=== PATIENT | male | born 1980 | race Caucasian/White ===

== ENCOUNTER 2018-04-11 01:11 | Emergency (ER) | payer MEDICAID ==
[2018-04-11 01:17] VITALS: BP 140/88
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
== END 2018-04-11 02:37 | disposition home or self-care (01) ==
DX: S62.522A Displaced fracture of distal phalanx of left thumb, initial encounter for closed fracture (principal); V19.9XXA Pedal cyclist (driver) (passenger) injured in unspecified traffic accident, initial encounter; Y92.9 Unspecified place or not applicable; Y99.9 Unspecified external cause status; Y93.9 Activity, unspecified; Z59.0 Homelessness
CPT/HCPCS: L3807

== ENCOUNTER 2018-04-18 10:40 | Emergency (ER) | payer MEDICAID ==
--- NOTE | 2018-04-18 10:48 | EDPHY ---
H & P Stated Complaint: Frostbite Time Seen by Provider: 04/18/18 10:42 HPI/ROS: CHIEF COMPLAINT: Frostbite HISTORY OF PRESENT ILLNESS: Patient is a 38-year-old man who is been dealing with frostbite on both toes for the last several weeks. He states that he stayed out side last night and thinks that he exacerbated his symptoms. He denies other injuries or complaints. No fevers. Severity: Moderate Modifying factors: Worsened by cold REVIEW OF SYSTEMS: Constitutional: denies: chills, fever, recent illness, recent injury EENTM: denies: blurred vision, double vision, nose congestion Respiratory: denies: cough, shortness of breath Cardiac: denies: chest pain, irregular heart rate, lightheadedness, palpitations Gastrointestinal/Abdominal: denies: abdominal pain, diarrhea, nausea, vomiting, blood streaked stools Genitourinary: denies: dysuria, frequency, hematuria, pain Musculoskeletal: denies: joint pain, muscle pain Skin: See HPI Neurological: denies: headache, numbness, paresthesia, tingling, dizziness, weakness Hematologic/Lymphatic: denies: blood clots, easy bleeding, easy bruising Immunologic/allergic: denies: HIV/AIDS, transplant 10 systems reviewed and negative except as noted EXAM: GENERAL: Well-appearing, well-nourished and in no acute distress. HEAD: Atraumatic, normocephalic. EYES: Pupils equal round and reactive to light, extraocular movements intact, sclera anicteric, conjunctiva are normal. ENT: TMs normal, nares patent, oropharynx clear without exudates. Moist mucous membranes. NECK: Normal range of motion, supple without lymphadenopathy or JVD. LUNGS: Breath sounds clear to auscultation bilaterally and equal. No wheezes rales or rhonchi. HEART: Regular rate and rhythm without murmurs, rubs or gallops. ABDOMEN: Soft, nontender, normoactive bowel sounds. No guarding, no rebound. No masses appreciated. BACK: No CVA tenderness, no spinal tenderness, step-offs or deformities EXTREMITIES: The patient has frostbite injuries to tips of all toes. Most prominent to the lateral aspect of his right foot. White discoloration at the tips with some purplish discoloration surrounding. No open lesions. No obvious infection. Normal movement. no pitting or edema. No clubbing NEUROLOGICAL: Cranial nerves II through XII grossly intact. Normal speech, normal gait. 5/5 strength, normal movement in all extremities, normal sensation , normal reflexes PSYCH: Normal mood, normal affect. SKIN: See above, dry, Source: Patient, EMS Exam Limitations: No limitations - Medical/Surgical History Hx Asthma: No Hx Chronic Respiratory Disease: No Hx Diabetes: No Hx Cardiac Disease: No Hx Renal Disease: No Hx Cirrhosis: Yes Hx Alcoholism: Yes Other PMH: paranoid schizophrenic - Social History Smoking Status: Current every day smoker Constitutional: Initial Vital Signs Temperature (C) 36.8 C 04/18/18 10:40 Heart Rate 95 04/18/18 10:40 Respiratory Rate 16 04/18/18 10:40 Blood Pressure 132/91 H 04/18/18 10:40 O2 Sat (%) 97 04/18/18 10:40 O2 Delivery Mode Room Air Allergies/Adverse Reactions: No Allergies [NKDA] Allergy (Verified 04/15/18 00:40) Home Medications: Medication Instructions Recorded Acetaminophen [Tylenol 325mg (*)] 650 mg PO Q6 PRN 04/15/18 Acetaminophen [Tylenol 325mg (*)] 325 - 650 mg PO Q4HRS PRN tab 04/17/18 Aspirin [Aspirin 325 mg (*)] 325 mg PO DAILY tab 04/17/18 Gabapentin [Neurontin 300 MG (*)] 900 mg PO TID #90 cap 04/17/18 buPROPion XL [Wellbutrin 150mg XL] 150 mg PO DAILY #30 tab 04/17/18 Medical Decision Making ED Course/Re-evaluation: The patient has old-appearing frostbite injuries to both feet. He states that they are more painful after sleeping outside last night. There dry. No open wounds or sign of infections currently. Will give extra pair of socks and referral to nursing home. Will also refer to surgery. Discussed the treatment for these which is essentially observation and auto amputation. I do feel that the majority of his toes will survive. Differential Diagnosis: Partial list of the Differential diagnosis considered include but were not limited to; frostbite, wound infection, burn and although unlikely based on the history and physical exam, I also considered cellulitis, ischemia, fracture , crush injury. Departure - Departure Disposition: Home, Routine, Self-Care Clinical Impression: Frostbite of both feet Condition: Fair Instructions: Frostbite (ED) Additional Instructions: Reminder: you have an appt at the [facility], [address] [place] [address], on 04/25/18 @ 0800. Please follow up with coordinated entry and continue utilizing the warming shelters. Referrals: Patient,NotPresent [Unknown] - As per Instructions Myles Mann MD [Medical Doctor] - 5-7 days, call for appt.
[2018-04-18 10:49] VITALS: BP 146/96
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
== END 2018-04-18 11:21 | disposition home or self-care (01) ==
LOC: EDUNIT# → MERGE 10:40
DX: T33.832A Superficial frostbite of left toe(s), initial encounter (principal); T33.831A Superficial frostbite of right toe(s), initial encounter; X31.XXXA Exposure to excessive natural cold, initial encounter; Y92.9 Unspecified place or not applicable; Y99.9 Unspecified external cause status; Y93.9 Activity, unspecified

== ENCOUNTER 2018-04-25 01:55 | Emergency (ER) | payer MEDICAID ==
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
[2018-04-25 02:49] VITALS: BP 142/87
== END 2018-04-25 03:02 | disposition home or self-care (01) ==
DX: R23.4 Changes in skin texture (principal); F20.9 Schizophrenia, unspecified; Z59.0 Homelessness

== ENCOUNTER 2018-05-03 01:59 | Emergency (ER) | payer MEDICAID ==
[2018-05-03 02:01] VITALS: BP 134/80
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
== END 2018-05-03 02:22 | disposition home or self-care (01) ==
DX: T33.831D Superficial frostbite of right toe(s), subsequent encounter (principal); T33.8 Superficial frostbite of ankle, foot, and toe(s); F20.0 Paranoid schizophrenia

== ENCOUNTER 2018-05-04 02:11 | Emergency (ER) | payer MEDICAID ==
--- NOTE | 2018-05-04 02:13 | EDPHY ---
H & P Time Seen by Provider: 05/04/18 02:13 HPI/ROS: HPI CHIEF COMPLAINT: "I think I have an infection underneath my wagner" HISTORY OF PRESENT ILLNESS: 38-year-old male, history of schizophrenia, homelessness, presents emergency room stating that he thinks he has an infection underneath his wagner. He complains some mild redness, itchiness, is concerned about infection. He has been picking at his wagner and skin underneath , it is noted he has dirty hands. On exam I am unable to visualize any significant cellulitis there is some mild redness and skin irritation. I do not appreciate any mites. Otherwise denies any significant complaints. Past Medical History: Medical history for schizophrenia, homelessness, history of frostbite. Past Surgical History: Recent surgery Social History: Denies daily use of drugs alcohol tobacco. Homeless. Family History: Noncontributory ROS REVIEW OF SYSTEMS: 10 Systems were reviewed and negative with the exception of the elements mentioned in the history of present illness. Exam Constitutional triage nursing summary reviewed, vital signs reviewed, awake/ alert. Eyes normal conjunctivae and sclera, EOMI, PERRLA. HENT normal inspection, atraumatic, moist mucus membranes, no epistaxis, neck supple/ no meningismus, no raccoon eyes. Respiratory clear to auscultation bilaterally, normal breath sounds, no respiratory distress, no wheezing. Cardiovascular rate normal, regular rhythm, no murmur, no edema, distal pulses normal. Gastrointestinal soft, non-tender, no rebound, no guarding, normal bowel sounds, no distension, no pulsatile mass. Genitourinary no CVA tenderness. Musculoskeletal no midline vertebral tenderness, full range of motion, no calf swelling, no tenderness of extremities, no meningismus, good pulses, neurovascularly intact. Skin mild redness underneath his wagner on his chin. Some skin picking. No abscess. No significant cellulitis. No mites. Neurologic awake, alert and oriented x 3, AAOx3, moves all 4 extremities equally, motor intact, sensory intact, CN II-XII intact, normal cerebellar, normal vision, normal speech. Psychiatric normal mood/affect. Heme/Lymph/Immune no lymphadenopathy. Differential Diagnosis: Includes but is not limited to in a particular order: Cellulitis, folliculitis, dry skin, skin picking Medical Decision Making: Plan for this patient will start on Keflex. 1st dose given emergency room, take-home bottle, I recommended he highly refrain from speaking his wagner and skin underneath. He is homeless and has dirty hands and nails there is noted Dilaudid dirt under his nail beds. I do recommend he stops picking his skin. Additionally return precautions discussed. Understands this and is comfortable this plan. Source: Patient - Personal History Tetanus Vaccine Date: 2015 - Medical/Surgical History Hx Asthma: No Hx Chronic Respiratory Disease: No Hx Diabetes: No Hx Cardiac Disease: No Hx Renal Disease: No Hx Cirrhosis: Yes Hx Alcoholism: Yes Hx HIV/AIDS: No Hx Splenectomy or Spleen Trauma: No Other PMH: paranoid schizophrenic, drug abuse - Social History Smoking Status: Current every day smoker Constitutional: Initial Vital Signs Temperature (C) 36.6 C 05/04/18 02:15 Heart Rate 104 H 05/04/18 02:15 Respiratory Rate 18 05/04/18 02:15 Blood Pressure 130/78 H 05/04/18 02:15 O2 Sat (%) 96 05/04/18 02:15 O2 Delivery Mode Room Air Allergies/Adverse Reactions: No Allergies [NKDA] Allergy (Verified 05/04/18 02:15) Home Medications: Medication Instructions Recorded Acetaminophen [Tylenol 325mg (*)] 650 mg PO Q6 PRN 04/15/18 Acetaminophen [Tylenol 325mg (*)] 325 - 650 mg PO Q4HRS PRN tab 04/17/18 Aspirin [Aspirin 325 mg (*)] 325 mg PO DAILY tab 04/17/18 Gabapentin [Neurontin 300 MG (*)] 900 mg PO TID #90 cap 04/17/18 buPROPion XL [Wellbutrin 150mg XL] 150 mg PO DAILY #30 tab 04/17/18 Cephalexin [Keflex] 500 mg PO Q6H #28 cap 05/04/18 Departure - Departure Disposition: Home, Routine, Self-Care Clinical Impression: Cellulitis Condition: Good Instructions: Cellulitis (ED) Additional Instructions: 1. Do not pick your skin, do not pick your wagner. 2. Antibiotics as prescribed. 3. Return to the emergency room if worsening symptoms Prescriptions: Cephalexin [Keflex] 500 mg PO Q6H #28 cap
[2018-05-04] MEDS ORDERED: CEPHALEXIN 500MG PREPACK#4 BTL TAKEHOME ONE (02:26)
[2018-05-04] MEDS ORDERED: CEPHALEXIN 500 MG CAP PO ONE (02:26)
[2018-05-04 04:11] VITALS: BP 126/76
== END 2018-05-04 04:11 | disposition home or self-care (01) ==
DX: L03.211 Cellulitis of face (principal); F20.0 Paranoid schizophrenia; F17.200 Nicotine dependence, unspecified, uncomplicated; Z59.0 Homelessness

== ENCOUNTER → 2018-05-16 | Emergency (ER) | payer MEDICAID ==
[2018-05-16 14:03] VITALS: BP 130/82
== END ==
DX: Z53.21 Procedure and treatment not carried out due to patient leaving prior to being seen by health care provider (principal)

== ENCOUNTER 2018-05-31 01:01 | Emergency (ER) | payer MEDICAID ==
--- NOTE | 2018-05-31 01:13 | EDPHY ---
H & P Stated Complaint: SOB X 4 months Time Seen by Provider: 05/31/18 01:13 HPI/ROS: HPI CHIEF COMPLAINT: Cough x4 month HISTORY OF PRESENT ILLNESS: Patient is a 38-year-old male, well known to myself , has a history of schizophrenia and homelessness, he has been doing methamphetamine, he presents emergency room with cough x4 months. He denies fever. Denies productive cough, denies chest pain or shortness of breath. He is concerned about his cough tonight. He has also been smoking methamphetamine. He denies SI or HI. Past Medical History: Denies significant medical history except for schizophrenia. Does not take any daily medication Past Surgical History: No recent surgical history Social History: homeless, methamphetamine abuse Family History: Noncontributory. ROS REVIEW OF SYSTEMS: 10 Systems were reviewed and negative with the exception of the elements mentioned in the history of present illness. Exam Constitutional triage nursing summary reviewed, vital signs reviewed, awake/ alert. Vital signs stable. No acute distress. Eyes normal conjunctivae and sclera, EOMI, PERRLA. HENT normal inspection, atraumatic, moist mucus membranes, no epistaxis, neck supple/ no meningismus, no raccoon eyes. Respiratory clear to auscultation bilaterally, normal breath sounds, no respiratory distress, no wheezing. Cardiovascular rate normal, regular rhythm, no murmur, no edema, distal pulses normal. Gastrointestinal soft, non-tender, no rebound, no guarding, normal bowel sounds, no distension, no pulsatile mass. Genitourinary no CVA tenderness. Musculoskeletal no midline vertebral tenderness, full range of motion, no calf swelling, no tenderness of extremities, no meningismus, good pulses, neurovascularly intact. Skin pink, warm, & dry, no rash, skin atraumatic. Neurologic awake, alert and oriented x 3, AAOx3, moves all 4 extremities equally, motor intact, sensory intact, CN II-XII intact, normal cerebellar, normal vision, normal speech. Psychiatric normal mood/affect. Heme/Lymph/Immune no lymphadenopathy. Differential Diagnosis: Includes but is not limited to in a particular order viral syndrome, URI, bronchitis, pneumonia, methamphetamine abuse Medical Decision Making: Plan for this patient chest x-ray two view, and re- evaluation. Re-evaluation: Chest x-ray two view negative for acute cardiopulmonary disease. Image interpreted by myself Updated patient 2:30 a.m. Resting comfortably no acute distress. Patient is not hypoxic here, he is afebrile, his chest x-ray shows no pneumonia. Will prescribe an albuterol inhaler highly recommend refrain from smoking cigarettes and methamphetamine. He understands methamphetamine is very dangerous. We discussed return precautions. Patient was to be observed further, however patient left AMA. Source: Patient - Personal History Current Tetanus/Diphtheria Vaccine: Yes Current Tetanus Diphtheria and Acellular Pertussis (TDAP): Yes Tetanus Vaccine Date: 2015 - Medical/Surgical History Hx Asthma: No Hx Chronic Respiratory Disease: No Hx Diabetes: No Hx Cardiac Disease: No Hx Renal Disease: No Hx Cirrhosis: Yes Hx Alcoholism: Yes Hx HIV/AIDS: No Hx Splenectomy or Spleen Trauma: No Other PMH: paranoid schizophrenic, drug abuse - Social History Smoking Status: Current every day smoker Constitutional: Initial Vital Signs Temperature (C) 37.0 C 05/31/18 01:03 Heart Rate 113 H 05/31/18 01:03 Respiratory Rate 18 05/31/18 01:03 Blood Pressure 138/83 H 05/31/18 01:03 O2 Sat (%) 96 05/31/18 01:03 O2 Delivery Mode Room Air Allergies/Adverse Reactions: No Allergies [NKDA] Allergy (Verified 05/31/18 01:03) Home Medications: Medication Instructions Recorded NK [No Known Home Meds] 05/16/18 Medical Decision Making - Data Points Medications Given: Discontinued Medications Albuterol Sulfate (Proventil Inh Prepack) 1 mdi CHARIS PETE ONE Stop: 05/31/18 04:39 Last Admin: 05/31/18 04:44 Dose: 1 mdi Departure - Departure Disposition: Against Medical Advice Clinical Impression: Cough Condition: Good Instructions: Albuterol (By breathing), Against Medical Advice (ED), Acute Cough (ED) Additional Instructions: 1. Stay well-hydrated and rest. 2. Albuterol inhaler as needed. 3. Return to the emergency room if worsening symptoms 4. Do not smoke or do methamphetamine. Referrals: NONE *PRIMARY CARE P,. [Primary Care Provider] - As per Instructions [facility],. [Clinic] - As per Instructions
[2018-05-31 04:32] VITALS: BP 112/66
[2018-05-31] MEDS ORDERED: ALBUTEROL INH PREPACK MDI TAKEHOME ONE (04:38)
== END 2018-05-31 04:50 | disposition left against medical advice (07) ==
LOC: EEVIPCON 01:01
DX: R05 Cough (principal); F17.200 Nicotine dependence, unspecified, uncomplicated; Z59.0 Homelessness

== ENCOUNTER 2018-06-09 05:50 | Emergency (ER) | payer MEDICAID ==
[2018-06-09 05:56] VITALS: BP 114/78
--- NOTE | 2018-06-09 06:13 | EDPHY ---
H & P Stated Complaint: R FOOT PAIN DENIES TRAUMA. HX OF FROSTBITE Time Seen by Provider: 06/09/18 06:03 HPI/ROS: Chief Complaint: Foot pain HPI: 38-year-old homeless male well known to myself in this emergency department. He has a history of schizophrenia chronic methamphetamine abuse. Patient also has history of frostbite several months ago. Patient is coming in complaining of worsening pain in his mid right foot for the last few days. Denies any injuries. He is complaining of swelling in his mid foot. No fevers or chills. Last methamphetamine was 2-3 days ago. ROS: 10 systems were reviewed and were negative except those elements noted in the HPI. PMH: Schizophrenia, chronic methamphetamine abuse, frostbite Social History: No smoking, no alcohol, no recreational drug use Family History: non-contributory Physical Exam: Gen: Awake, Alert, No Distress HEENT: Nose: no rhinorrhea Eyes: PERRLA, EOMI Mouth: Moist mucosa Neck: Supple, no JVD Chest: nontender, lungs clear to auscultation Heart: S1, S2 normal, no murmur Abd: Soft, non-tender, no guarding Back: no CVA tenderness, no midline tenderness Ext: no edema, mild hyperemic digits which are his baseline. He is only in the distal tips of his toes. He has normal perfusion. He has mild tenderness in his right mid foot. There is no deformity. There is no swelling. There is no discoloration. Is not warm to touch. Has normal deltoid solids pedis pulses. Skin: no rash Neuro: CN II-XII intact, Sensation grossly intact, Strength 5/5 in bilateral upper and lower extremities - Personal History Current Tetanus/Diphtheria Vaccine: Yes Current Tetanus Diphtheria and Acellular Pertussis (TDAP): Yes Tetanus Vaccine Date: 2015 - Medical/Surgical History Hx Asthma: No Hx Chronic Respiratory Disease: No Hx Diabetes: No Hx Cardiac Disease: No Hx Renal Disease: No Hx Cirrhosis: Yes Hx Alcoholism: Yes Hx HIV/AIDS: No Hx Splenectomy or Spleen Trauma: No Other PMH: paranoid schizophrenic, drug abuse - Social History Smoking Status: Current every day smoker Constitutional: Initial Vital Signs Temperature (C) 37.2 C 06/09/18 05:50 Heart Rate 138 H 06/09/18 05:50 Respiratory Rate 18 06/09/18 05:50 Blood Pressure 114/78 06/09/18 05:50 O2 Sat (%) 95 06/09/18 05:50 O2 Delivery Mode Room Air Allergies/Adverse Reactions: No Allergies [NKDA] Allergy (Verified 06/09/18 05:55) Home Medications: Medication Instructions Recorded NK [No Known Home Meds] 05/16/18 Medical Decision Making ED Course/Re-evaluation: 30-year-old male presenting with right foot pain. I suspect this is secondary to his chronic nerve damage secondary to his frostbite. There are no signs of bony deformity. No signs of infection at this time. He is otherwise at his baseline and well. I will discharge with referral to [facility], return for any concerns. When I informed the patient I do not see any evidence of acute infection of the process he demanded blood work. A total and at think there is any indication for that at this time. He is also insistent that there swelling in his dorsal right foot which I do not appreciate. He became very angry and belligerent. Patient threatened me. He stated he wanted to be evaluated another hospital acid that he is certainly welcome to do so. Patient required security escorted out of the department. Patient's agitated in appears to be under the influence of methamphetamine. Departure - Departure Disposition: Home, Routine, Self-Care Clinical Impression: Foot pain Condition: Good Instructions: Arthralgia (ED) Referrals: [facility],. [Clinic] - As per Instructions
== END 2018-06-09 06:17 | disposition home or self-care (01) ==
DX: M79.671 Pain in right foot (principal)

== ENCOUNTER 2018-06-11 15:04 | Emergency (ER) | payer MEDICAID ==
[2018-06-11] MEDS ORDERED: ONDANSETRON 4 MG/2 ML VIAL ONE (15:07)
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
[2018-06-11] MEDS ORDERED: ONDANSETRON 4 MG/2 ML VIAL IVP ONE (15:17)
[2018-06-11] MEDS ORDERED: CHLORDIAZEPOXIDE 25MG PREPK#6 BTL TAKEHOME ONE (17:17)
[2018-06-11 19:14] VITALS: BP 101/65
== END 2018-06-11 19:12 | disposition home or self-care (01) ==
LOC: EDUNIT#
DX: F10.920 Alcohol use, unspecified with intoxication, uncomplicated (principal)
CPT/HCPCS: 96374; J2405

== ENCOUNTER 2018-06-19 09:26 | Emergency (ER) | payer MEDICAID ==
[2018-06-19 09:31] VITALS: BP 124/83
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
== END 2018-06-19 10:02 | disposition home or self-care (01) ==
DX: R23.8 Other skin changes (principal); E11.9 Type 2 diabetes mellitus without complications; F17.200 Nicotine dependence, unspecified, uncomplicated; Z79.4 Long term (current) use of insulin; Z59.0 Homelessness

== ENCOUNTER 2018-06-25 18:38 | Emergency (ER) | payer MEDICAID ==
[2018-06-25] MEDS ORDERED: DOXYCYCLINE HYCLATE 100 MG CAP/TAB PO ONE (18:54)
--- NOTE | 2018-06-25 19:04 | EDPHY ---
H & P Stated Complaint: dysuria Time Seen by Provider: 06/25/18 18:51 HPI/ROS: CHIEF COMPLAINT: Dysuria HISTORY OF PRESENT ILLNESS: Patient is a 38-year-old homeless man who states that he has been suffering from dysuria for the last several months. He has a new sexual partner and is worried about STD. He states that he has noticed small amount of yellowish discharge. No fevers. No abdominal pain. No back pain. Severity: Moderate Modifying factors: None REVIEW OF SYSTEMS: Constitutional: denies: chills, fever, recent illness, recent injury EENTM: denies: blurred vision, double vision, nose congestion Respiratory: denies: cough, shortness of breath Cardiac: denies: chest pain, irregular heart rate, lightheadedness, palpitations Gastrointestinal/Abdominal: denies: abdominal pain, diarrhea, nausea, vomiting, blood streaked stools Genitourinary: See HPI Musculoskeletal: denies: joint pain, muscle pain Skin: denies: lesions, rash, jaundice, bruising Neurological: denies: headache, numbness, paresthesia, tingling, dizziness, weakness Hematologic/Lymphatic: denies: blood clots, easy bleeding, easy bruising Immunologic/allergic: denies: HIV/AIDS, transplant 10 systems reviewed and negative except as noted EXAM: GENERAL: Well-appearing, well-nourished and in no acute distress. HEAD: Atraumatic, normocephalic. EYES: Pupils equal round and reactive to light, extraocular movements intact, sclera anicteric, conjunctiva are normal. ENT: TMs normal, nares patent, oropharynx clear without exudates. Moist mucous membranes. NECK: Normal range of motion, supple without lymphadenopathy or JVD. LUNGS: Breath sounds clear to auscultation bilaterally and equal. No wheezes rales or rhonchi. HEART: Regular rate and rhythm without murmurs, rubs or gallops. ABDOMEN: Soft, nontender, normoactive bowel sounds. No guarding, no rebound. No masses appreciated. : No visible discharge. No erythema. No rash or lesions. BACK: No CVA tenderness, no spinal tenderness, step-offs or deformities EXTREMITIES: Normal range of motion, no pitting or edema. No clubbing or cyanosis. NEUROLOGICAL: Cranial nerves II through XII grossly intact. Normal speech, normal gait. 5/5 strength, normal movement in all extremities, normal sensation , normal reflexes PSYCH: Normal mood, normal affect. SKIN: Warm, dry, normal turgor, no visible rashes or lesions. Source: Patient Exam Limitations: No limitations - Personal History Current Tetanus/Diphtheria Vaccine: Yes Current Tetanus Diphtheria and Acellular Pertussis (TDAP): Yes Tetanus Vaccine Date: 2015 - Medical/Surgical History Hx Asthma: No Hx Chronic Respiratory Disease: No Hx Diabetes: No Hx Cardiac Disease: No Hx Renal Disease: No Hx Cirrhosis: Yes Hx Alcoholism: Yes Hx HIV/AIDS: No Hx Splenectomy or Spleen Trauma: No Other PMH: paranoid schizophrenic, drug abuse - Family History Significant Family History: No pertinent family hx - Social History Smoking Status: Current every day smoker Alcohol Use: Sober Drug Use: None Constitutional: Initial Vital Signs Temperature (C) 37.2 C 06/25/18 18:44 Heart Rate 113 H 06/25/18 18:44 Respiratory Rate 16 06/25/18 18:44 Blood Pressure 129/83 H 06/25/18 18:44 O2 Sat (%) 95 06/25/18 18:44 O2 Delivery Mode Room Air Allergies/Adverse Reactions: No Allergies [NKDA] Allergy (Unverified 06/25/18 18:44) Home Medications: Medication Instructions Recorded NK [No Known Home Meds] 05/16/18 Medical Decision Making ED Course/Re-evaluation: 7:05 p.m. The patient has symptoms consistent with STD. Will treat prophylactically while lab work is pending. Patient is happy with this plan. Differential Diagnosis: Partial list of the Differential diagnosis considered include but were not limited to; urinary tract infection, STD and although unlikely based on the history and physical exam, I also considered kidney stone, orchitis, torsion, trauma. I discussed these differential diagnoses and the plan with the patient as well as the usual and expected course. The patient understands that the diagnosis is provisional and that in medicine we are not always correct and that further workup is often warranted. Usual and customary warnings were given. All of the patient's questions were answered. The patient was instructed to return to the emergency department should the symptoms at all worsen or return, otherwise to followup with the physician as we discussed. - Data Points Laboratory Results: 06/25/18 06/25/18 19:30 19:10 Urine Color PALE YELLOW Urine Appearance CLEAR Urine pH 6.0 (5.0-7.5) Ur Specific [place] 1.006 (1.002-1.030) Urine Protein NEGATIVE (NEGATIVE) Urine Ketones NEGATIVE (NEGATIVE) Urine Blood NEGATIVE (NEGATIVE) Urine Nitrate NEGATIVE (NEGATIVE) Urine Bilirubin NEGATIVE (NEGATIVE) Urine Urobilinogen NEGATIVE EU EU (0.2-1.0) Ur Leukocyte Esterase NEGATIVE (NEGATIVE) Urine RBC 1-3 /hpf /hpf (0-3) Urine WBC 5-10 /hpf H /hpf (0-3) Ur Epithelial Cells TRACE /lpf /lpf (NONE-1+) Urine Mucus TRACE /lpf /lpf (NONE-1+) Urine Glucose NEGATIVE (NEGATIVE) C.trachomatis RNA (TMA) Pending N.gonorrhoeae RNA (TMA) Pending Medications Given: Discontinued Medications Azithromycin (Zithromax) 1,000 mg PO EDNOW ONE PRN Reason: Protocol Stop: 06/25/18 19:14 Last Admin: 06/25/18 19:34 Dose: 1,000 mg Ceftriaxone Sodium (Rocephin Im Syringe) 250 mg IM ONCE ONE PRN Reason: Protocol Stop: 06/25/18 18:55 Last Admin: 06/25/18 19:30 Dose: 250 mg Doxycycline Hyclate (Doxycycline Hyclate) 100 mg PO EDNOW ONE PRN Reason: Protocol Stop: 06/25/18 18:55 Last Admin: 06/25/18 19:08 Dose: 100 mg Departure - Departure Disposition: Home, Routine, Self-Care Clinical Impression: Dysuria Condition: Fair Instructions: Sexually Transmitted Diseases (ED) Additional Instructions: Urine cultures will return in the next 2 days. Continue taking antibiotics as we discussed. Referrals: NONE *PRIMARY CARE P,. [Primary Care Provider] - As per Instructions [facility],. [Clinic] - As per Instructions
[2018-06-25] MEDS ORDERED: AZITHROMYCIN 250 MG TAB PO ONE (19:13)
[2018-06-25 19:39] VITALS: BP 131/84
[2018-06-26 10:42] LABS: GC AMPLIFICATION GENPROBE NEGATIVE (NEGATIVE)
== END 2018-06-25 20:02 | disposition home or self-care (01) ==
DX: R30.0 Dysuria (principal); F20.0 Paranoid schizophrenia; F17.200 Nicotine dependence, unspecified, uncomplicated; Z59.0 Homelessness
CPT/HCPCS: J0696

== ENCOUNTER 2018-06-26 00:46 | Emergency (ER) | payer MEDICAID ==
[2018-06-26] MEDS ORDERED: ONDANSETRON 4 MG/2 ML VIAL ONE (00:51)
[2018-06-26 00:52] VITALS: BP 114/77
[2018-06-26] MEDS ORDERED: ONDANSETRON DISINTEGRATING 4 MG TAB PO ONE (00:57)
--- NOTE | 2018-06-26 01:01 | EDPHY ---
H & P Stated Complaint: lightheaded and nauseated Time Seen by Provider: 06/26/18 00:54 HPI/ROS: Chief Complaint: Nausea and vomiting HPI: 30-year-old male presenting with complaints of nausea and vomiting. Patient was seen here several hours ago was given a g of azithromycin orally and ceftriaxone IM for presumptive STI. Patient states he has vomited twice since that time. Continue complain of some nausea. No blood in his emesis. No lightheadedness or fainting. No chest pain shortness of breath. No abdominal pain. No fevers or chills. ROS: 10 systems were reviewed and were negative except those elements noted in the HPI. Social History: Positive smoking, occasional alcohol, currently homeless Family History: non-contributory Physical Exam: Gen: Awake, Alert, No Distress HEENT: Nose: no rhinorrhea Eyes: PERRLA, EOMI Mouth: Moist mucosa Neck: Supple, no JVD Chest: nontender, lungs clear to auscultation Heart: S1, S2 normal, no murmur Abd: Soft, non-tender, no guarding Back: no CVA tenderness, no midline tenderness Ext: no edema, non-tender Skin: no rash Neuro: CN II-XII intact, Sensation grossly intact, Strength 5/5 in bilateral upper and lower extremities - Personal History Current Tetanus/Diphtheria Vaccine: Yes Current Tetanus Diphtheria and Acellular Pertussis (TDAP): Yes Tetanus Vaccine Date: 2015 - Medical/Surgical History Hx Asthma: No Hx Chronic Respiratory Disease: No Hx Diabetes: No Hx Cardiac Disease: No Hx Renal Disease: No Hx Cirrhosis: Yes Hx Alcoholism: Yes Hx HIV/AIDS: No Hx Splenectomy or Spleen Trauma: No Other PMH: paranoid schizophrenic, drug abuse, hep C - Social History Smoking Status: Current every day smoker Constitutional: Initial Vital Signs Temperature (C) 36.6 C 06/26/18 00:49 Heart Rate 118 H 06/26/18 00:49 Respiratory Rate 16 06/26/18 00:49 Blood Pressure 114/77 06/26/18 00:49 O2 Sat (%) 99 06/26/18 00:49 O2 Delivery Mode Room Air Allergies/Adverse Reactions: No Allergies [NKDA] Allergy (Verified 06/26/18 00:52) Home Medications: Medication Instructions Recorded Abx 06/26/18 Medical Decision Making ED Course/Re-evaluation: 3-year-old male presenting with nausea vomiting likely secondary to the antibiotics he received earlier for present of STI. He has a benign exam. He has received oral Zofran is feeling improved. Will discharge with follow-up as an outpatient. Departure - Departure Disposition: Home, Routine, Self-Care Clinical Impression: Vomiting Condition: Good Instructions: Acute Nausea and Vomiting (ED) Additional Instructions: Follow up with [facility] in 2-3 days for further evaluation. Referrals: [facility] [Other] - As per Instructions
== END 2018-06-26 01:15 | disposition home or self-care (01) ==
DX: R11.2 Nausea with vomiting, unspecified (principal); F20.0 Paranoid schizophrenia; F17.200 Nicotine dependence, unspecified, uncomplicated
CPT/HCPCS: J2405

== ENCOUNTER 2018-07-06 14:34 | Emergency (ER) | payer MEDICAID ==
[2018-07-06 14:41] VITALS: BP 123/67
--- NOTE | 2018-07-06 14:48 | EDPHY ---
H & P Stated Complaint: med clear for custodial--states he "took drugs" and "ribs hurt" Source: Patient Exam Limitations: No limitations - Personal History Tetanus Vaccine Date: 2015 - Medical/Surgical History Hx Asthma: No Hx Chronic Respiratory Disease: No Hx Diabetes: No Hx Cardiac Disease: No Hx Renal Disease: No Hx Cirrhosis: Yes Hx Alcoholism: Yes Hx HIV/AIDS: No Hx Splenectomy or Spleen Trauma: No Other PMH: paranoid schizophrenic, drug abuse, hep C - Social History Smoking Status: Current every day smoker Time Seen by Provider: 07/06/18 14:55 HPI/ROS: HPI: This is a 38-year-old male who presents with Chief Complaint: med clear for custodial--states he "took drugs" and "ribs hurt" Location: Body Quality: Pain Duration: Unknown Signs and Symptoms: No bleeding, no radiation, no numbness, no weakness, no tingling, no incontinence, no decreased range of motion, no swelling, + pain, no fever Timing: Unknown Severity: 10/22 Context: Patient presents accompanied by [employer] for medical clearance. He is currently arrested and was running from the police when he started complaining of generalized body pain for an unknown amount of time. He is rambling and a very difficult historian. Denies LOC/head injury/neck pain/ dizziness/nausea/vomiting/amnesia. Modifying Factors: Has not tried any [id number] medications Comment: ROS: A comprehensive 10 system review of systems is otherwise negative aside from elements mentioned in the history of present illness. MEDICAL/SURGICAL/SOCIAL HISTORY: Medical history: paranoid schizophrenic, drug abuse, hep C Surgical history: Denies Social history: Current every day smoker. Homeless. CONSTITUTIONAL: Untidy, cooperative, middle-aged white male, awake and alert, no obvious distress HEENT: Atraumatic and normocephalic, PERRL, EOMI. Nares patent; no rhinorrhea; no nasal mucosal edema. Tympanic membranes clear. Oropharynx clear, no exudate and moist pink mucosa. Airway patent. No lymphadenopathy. No meningismus. Cardiovascular: Normal S1/S2, regular rate, regular rhythm, without murmur rub or gallop. PULMONARY/CHEST: Symmetrical and nontender. Clear to auscultation bilaterally. Good air movement. No accessory muscle usage. ABDOMEN: Soft, nondistended, nontender, no rebound, no guarding, no peritoneal signs, no masses or organomegaly. No CVAT. EXTREMITIES: 2/2 pulses, strength 5/5, no deformities, no clubbing, no cyanosis or edema. NEUROLOGICAL: no focal neuro deficits. GCS 15. SKIN: Warm and dry, no erythema. no rash. Good capillary refill. (Magi Navarro) Constitutional: Initial Vital Signs Temperature (C) 37.0 C 07/06/18 14:37 Heart Rate 81 07/06/18 14:37 Respiratory Rate 16 07/06/18 14:37 Blood Pressure 123/67 H 07/06/18 14:37 O2 Sat (%) 97 07/06/18 14:37 O2 Delivery Mode Room Air Allergies/Adverse Reactions: No Allergies [NKDA] Allergy (Verified 06/26/18 00:52) Home Medications: Medication Instructions Recorded Abx 06/26/18 Medical Decision Making ED Course/Re-evaluation: Vital signs reviewed and stable upon arrival. Patient does not meet hold or [facility] hold criteria There is no indication for x-ray imaging or laboratory studies. Advised patient can take Tylenol or ibuprofen. Patient is medically cleared to be released into the custody of police to be incarcerated. No signs of neurovascular compromise/tenting of skin/compartment syndrome/ extremities and joints examined above and below area of concern and are neurovascularly intact. This patient was seen under the supervision of my secondary supervising physician. I evaluated and cared for this patient independently. (Magi Navarro) The patient was evaluated and managed by the physician resident programs assistant. I have reviewed this chart and I agree with the findings and plan of care as documented , as indicated by my signature. I am the secondary supervising physician. ( Elo Kahn) Differential Diagnosis: Altered mental status including but not limited to hypoglycemia, infectious process, electrolyte abnormality, head injury and intoxicants. (Magi Navarro) Departure - Departure Disposition: Law Enforcement/Court/Snf Clinical Impression: Psychogenic body system pain Condition: Good Instructions: Musculoskeletal Pain (ED) Additional Instructions: Patient is Medically Cleared to be discharged in the care of police for incarceration. See [facility] for follow-up instructions and prescriptions. Referrals: Patient,NotPresent [Unknown] - As per Instructions [facility],. [Clinic] - As per Instructions
== END 2018-07-06 15:00 ==
DX: F45.41 Pain disorder exclusively related to psychological factors (principal)